=== PATIENT | male | born 1945 | race Two or more races ===

== ENCOUNTER 2016-05-13 07:46 | Emergency (ER) | payer MEDICARE ==
[2016-05-13] MEDS ORDERED: NS 0.9% 1000 ML* 1,000 ML IV ONE (08:26)
[2016-05-13 08:47] LABS: Hematocrit 35 % (42-52); Hemoglobin 11.5 g/dl (14.0-18.0); Mean Corpuscular HGB Conc 33 g/dl (31-36); Mean Corpuscular Hemoglobin 31 pg (27-31); Mean Corpuscular Volume 94 fL (80-94); Mean Platelet Volume 8 um3 (7.4-10.4); Red Blood Count 3.72 10^6/ul (4.0-5.4); Red Cell Distribution Width 14 % (10.5-15); White Blood Count 10.9 10^3/ul (3.5-10.8)
[2016-05-13 08:58] LABS: BUN/Creatinine Ratio 21.2 (8-20); Calcium 9.5 mg/dL (8.6-10.3); EGFR African American 69.4 (>60); EGFR Non-African American 53.9 (>60); Globulin 3.2 g/dL (2-4); Magnesium 1.8 mg/dL (1.9-2.7); Potassium 4.6 mmol/L (3.5-5.0); Total Bilirubin 0.5 mg/dL (0.2-1.0); Total Protein 7.2 g/dL (6.4-8.9)
[2016-05-13 09:00] LABS: Troponin I 0.01 ng/mL (<0.04)
[2016-05-13 09:08] LABS: TSH (Thyroid Stimulating Horm) 1.32 mcIU/mL (0.34-5.60)
[2016-05-13 10:29] LABS: Urine Bilirubin Negative (Negative); Urine Glucose Negative (Negative); Urine Nitrite Negative (Negative)
[2016-05-13] MEDS ORDERED: Acetaminop/Codeine 30 MG TAB* 1 TAB (300 MG/30 MG) PO ONE (12:38)
--- NOTE | 2016-05-13 15:02 | RAD ---
INDICATION: Cough COMPARISON: April 05, 2015 TECHNIQUE: PA and lateral dual-energy views were obtained. FINDINGS: Bones/Soft Tissues: There are no acute bony findings. There is a left-sided cardiac pacemaker Cardiomediastinal: The cardiomediastinal silhouette is normal. There are no current basilar congestive findings Lungs: There are no infiltrates. There is mild hyperinflation. Pleura: There are no pleural effusions. Other: None IMPRESSION: CARDIAC PACEMAKER. NO ACUTE DISEASE.
[2016-05-13 15:42] VITALS: BP 100/84
--- NOTE | 2016-05-13 17:41 | ED ---
Anjelica Ferrell Salem, scribed for Kartik Mortensen MD on 05/13/16 at 0825 . Syncope/Near Syncope - HPI Summary HPI Summary: Patient is a 70 y/o male who presents to the ED with syncope this morning. His reports he woke up this morning and was doing well. He then took a nap and the syncope occurred following the nap. Pt has a hx of dizziness, but he denies dizziness this morning. He reports syncope lasted approximately one minute and his reports pt was dazed afterwards. Pt saw PCP yesterday for fever and had a negative CXR. He is on blood pressure medication, although he did not take his medicine this morning. - History Of Current Complaint Chief Complaint: EDSyncope Time Seen by Provider: 05/13/16 08:09 Hx Obtained From: Patient Onset/Duration: Sudden Onset Context: Unwitnessed Activity At Onset: Other - Walking to bathroom. Aggravating Factor(s): Nothing Alleviating Factor(s): Nothing Associated Signs And Symptoms: Negative - Allergies/Home Medications Allergies/Adverse Reactions: Allergies Allergy/AdvReac Type Severity Reaction Status Date / Time No Known Allergies Allergy Verified 05/13/16 08:15 Home Medications: Home Medications Aspirin [Aspirin Adult Low Strengt 81 MG] 81 mg PO DAILY 05/13/16 [History Confirmed 05/13/16] Carvedilol TAB* [Coreg TAB*] 12.5 mg PO BID 05/13/16 [History Confirmed 05/13/16 ] Coenzyme Q10 (Ubidecarenone) [Co Q-10] 100 mg PO DAILY 05/13/16 [History Confirmed 05/13/16] Ferrous Sulfate TAB* 325 mg PO DAILY 05/13/16 [History Confirmed 05/13/16] Metformin HCl [Metformin HCl ER (Osmotic] 500 mg PO BID 05/13/16 [History Confirmed 05/13/16] Multiple Vitamin [Multi Vitamin] 1 tab PO DAILY 05/13/16 [History Confirmed 10/22] [place]-3 Fatty Acids [[place]-3 Fish Oil] 2 cap PO DAILY 05/13/16 [History Confirmed 05/13/16] Ramipril CAP* [Altace CAP*] 5 mg PO DAILY 05/13/16 [History Confirmed 05/13/16] Rosuvastatin Calcium 10 mg PO DAILY 05/13/16 [History Confirmed 05/13/16] Spironolactone TAB* [Aldactone TAB*] 25 mg PO DAILY 05/13/16 [History Confirmed 05/13/16] PMH/Surg Hx/FS Hx/Imm Hx Endocrine/Hematology History: Reports: Hx Diabetes Denies: Hx Systemic Lupus Erythematosus Cardiovascular History: Reports: Hx Hypertension, Other Cardiovascular Problems/ Disorders - [employer] Denies: Hx Congestive Heart Failure, Hx Pacemaker/ICD Respiratory History: Denies: Other Respiratory Problems/Disorders History: Denies: Hx Renal Disease Musculoskeletal History: Denies: Hx Rheumatoid Arthritis Sensory History: Reports: Hx Hearing Aid Neurological History: Comment Only: Other Neuro Impairments/Disorders - MENINGITIS AND STORKES IN 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 - Social History Alcohol Use: None Substance Use Type: Reports: None Hx Tobacco Use: No Smoking Status (MU): Never Smoked Tobacco Review of Systems Negative: Fever Positive: Syncope All Other Systems Reviewed And Are Negative: Yes Physical Exam Triage Information Reviewed: Yes Vital Signs On Initial Exam: Initial Vitals Temp Pulse Resp BP Pulse Ox 99.3 F 72 18 99/56 98 05/13/16 07:47 05/13/16 07:47 05/13/16 07:47 05/13/16 07:47 05/13/16 07:47 Vital Signs Reviewed: Yes Appearance: Positive: Well-Appearing, No Pain Distress Skin: Positive: Warm, Skin Color Reflects Adequate Perfusion, Dry Head/Face: Positive: Normal Head/Face Inspection Eyes: Positive: Normal Neck: Positive: Supple, Nontender Respiratory/Lung Sounds: Positive: Clear to Auscultation, Breath Sounds Present Cardiovascular: Positive: RRR Abdomen Description: Positive: Nontender, Soft Bowel Sounds: Positive: Present Musculoskeletal: Positive: Normal Neurological: Positive: Normal Psychiatric: Positive: Normal, Affect/Mood Appropriate - [place] Coma Scale Coma Scale Total: 15 Diagnostics - Vital Signs Vital Signs Temp Pulse Resp BP Pulse Ox 05/13/16 08:00 73 20 93/58 96 05/13/16 07:57 73 94/57 96 03/08/17 07:56 73 95 05/13/16 07:47 99.3 F 72 18 99/56 98 - Laboratory Lab Results: Lab Results 05/13/16 05/13/16 05/13/16 Range/Units 07:56 07:56 07:56 WBC 10.9 H (3.5-10.8) 10^3/ul RBC 3.72 L (4.0-5.4) 10^6/ul Hgb 11.5 L (14.0-18.0) g/dl Hct 35 L (42-52) % MCV 94 (80-94) fL MCH 31 (27-31) pg MCHC 33 (31-36) g/dl RDW 14 (10.5-15) % Plt Count 115 L (150-450) 10^3/ul MPV 8 (7.4-10.4) um3 Neut % (Auto) 69.2 (38-83) % Lymph % (Auto) 20.1 L (25-47) % [place] % (Auto) 10.0 H (1-9) % Eos % (Auto) 0.1 (0-6) % Baso % (Auto) 0.6 (0-2) % Absolute Neuts (auto) 7.6 (1.5-7.7) 10^3/ul Absolute Lymphs (auto) 2.2 (1.0-4.8) 10^3/ul Absolute Monos (auto) 1.1 H (0-0.8) 10^3/ul Absolute Eos (auto) 0 (0-0.6) 10^3/ul Absolute Basos (auto) 0.1 (0-0.2) 10^3/ul Absolute Nucleated RBC 0.01 10^3/ul Nucleated RBC % 0.1 Sodium 128 L (133-145) mmol/L Potassium 4.6 (3.5-5.0) mmol/L Chloride 100 L (101-111) mmol/L Carbon Dioxide 22 (22-32) mmol/L Anion Gap 6 (2-11) mmol/L BUN 28 H (6-24) mg/dL Creatinine 1.32 H (0.67-1.17) mg/dL Est GFR ( Amer) 69.4 (>60) Est GFR (Non-Af Amer) 53.9 (>60) BUN/Creatinine Ratio 21.2 H (8-20) Glucose 142 H (70-100) mg/dL Lactic Acid 1.1 (0.5-2.0) mmol/L Calcium 9.5 (8.6-10.3) mg/dL Magnesium 1.8 L (1.9-2.7) mg/dL Total Bilirubin 0.50 (0.2-1.0) mg/dL AST 36 (13-39) U/L ALT 51 (7-52) U/L Alkaline Phosphatase 29 L (34-104) U/L Troponin I 0.01 (<0.04) ng/mL Total Protein 7.2 (6.4-8.9) g/dL Albumin 4.0 (3.2-5.2) g/dL Globulin 3.2 (2-4) g/dL Albumin/Globulin Ratio 1.3 (1-3) TSH 1.32 (0.34-5.60) mcIU/mL Urine Color Urine Appearance Urine pH (5-9) Ur Specific [place] (1.010-1.030) Urine Protein (Negative) Urine Ketones (Negative) Urine Blood (Negative) Urine Nitrate (Negative) Urine Bilirubin (Negative) Urine Urobilinogen (Negative) Ur Leukocyte Esterase (Negative) Urine Glucose (Negative) 05/13/16 Range/Units 10:19 WBC (3.5-10.8) 10^3/ul RBC (4.0-5.4) 10^6/ul Hgb (14.0-18.0) g/dl Hct (42-52) % MCV (80-94) fL MCH (27-31) pg MCHC (31-36) g/dl RDW (10.5-15) % Plt Count (150-450) 10^3/ul MPV (7.4-10.4) um3 Neut % (Auto) (38-83) % Lymph % (Auto) (25-47) % [place] % (Auto) (1-9) % Eos % (Auto) (0-6) % Baso % (Auto) (0-2) % Absolute Neuts (auto) (1.5-7.7) 10^3/ul Absolute Lymphs (auto) (1.0-4.8) 10^3/ul Absolute Monos (auto) (0-0.8) 10^3/ul Absolute Eos (auto) (0-0.6) 10^3/ul Absolute Basos (auto) (0-0.2) 10^3/ul Absolute Nucleated RBC 10^3/ul Nucleated RBC % Sodium (133-145) mmol/L Potassium (3.5-5.0) mmol/L Chloride (101-111) mmol/L Carbon Dioxide (22-32) mmol/L Anion Gap (2-11) mmol/L BUN (6-24) mg/dL Creatinine (0.67-1.17) mg/dL Est GFR ( Amer) (>60) Est GFR (Non-Af Amer) (>60) BUN/Creatinine Ratio (8-20) Glucose (70-100) mg/dL Lactic Acid (0.5-2.0) mmol/L Calcium (8.6-10.3) mg/dL Magnesium (1.9-2.7) mg/dL Total Bilirubin (0.2-1.0) mg/dL AST (13-39) U/L ALT (7-52) U/L Alkaline Phosphatase (34-104) U/L Troponin I (<0.04) ng/mL Total Protein (6.4-8.9) g/dL Albumin (3.2-5.2) g/dL Globulin (2-4) g/dL Albumin/Globulin Ratio (1-3) TSH (0.34-5.60) mcIU/mL Urine Color Yellow Urine Appearance Clear Urine pH 5.0 (5-9) Ur Specific [place] 1.004 L (1.010-1.030) Urine Protein Negative (Negative) Urine Ketones Negative (Negative) Urine Blood Negative (Negative) Urine Nitrate Negative (Negative) Urine Bilirubin Negative (Negative) Urine Urobilinogen Negative (Negative) Ur Leukocyte Esterase Negative (Negative) Urine Glucose Negative (Negative) Result Diagrams: 05/13/16 07:56 05/13/16 07:56 Lab Statement: Any lab studies that have been ordered have been reviewed, and results considered in the medical decision making process. - Radiology CXR Radiology Interpretation Completed By: Radiologist - IMPRESSION: CARDIAC PACEMAKER. NO ACUTE DISEASE. - EKG 0742 EKG Interpretation: Ventricular paced. Atrial sensitive. Normal rate @ 73 bpm. Re-Evaluation - Re-Evaluation First Eval Re-Evaluation Time: 14:05 Comment: Discussed plan with pt. He is agreable. Course/Dx Course Of Treatment: Mr. Isaacs came in a bit hypotensive after having a sudden syncopal episode while walking to the bathroom to brush his teeth. He had no warning but has been sick for about a week and was in to see his PMD yesterday. He never really lost consciousness; his heard him fall and hurried over. He appeared dry and was rehydrated here while we arranged to have his ICD/Pacer interrogated. His heart was not the problem and I think he was just quite dehydrated from his recent viral infection. His BP improved with fluids and he felt better. - Diagnoses Provider Diagnoses: Severe dehydration, Viral syndrome - Physician Notifications Discussed Care Of Patient With: Dr. Fragoso (Hospitalist). Discharge - Discharge Plan Condition: Stable Disposition: HOME Prescriptions: Acetaminoph/Cod 120/12 mg LIQ* [Tylenol/Codeine 120/12 LIQ*] 5 ml PO Q4H PRN # 150 udc MDD 30 cc PRN Reason: Cough Patient Education Materials: Acetaminophen/Codeine (By mouth), Dehydration (ED) Referrals: Marylu Elliott MD [Primary Care Provider] - Additional Instructions: Follow up with PCP. The documentation as recorded by the Anjelica partida Salem accurately reflects the service I personally performed and the decisions made by me, Kartik Mortensen MD.
== END 2016-05-13 15:41 | disposition home or self-care (01) ==
LOC: ED 07:46
DX: B34.9 Viral infection, unspecified (principal); R55 Syncope and collapse; E86.0 Dehydration
CPT/HCPCS: 36415; 71020; 80053; 81003; 83605; 83735; 84443; 84484; 85025; 93005; 99284; A9270-GY

== ENCOUNTER → 2016-06-03 08:55 | Day surgery (SDC) | payer MEDICARE ==
[~2016-06-03 08:55] MED LIST: Acetaminophen TAB* 325 MG PO PRN; Buffered Lidocaine 1% SYRIN* 3 ML/SYR SYRINGE INTRADERM ONE; Cyclopentolate 1% OPTH.SOL* 2 ML BTL ONE; Flurbiprofen 0.03% OPTH.SOL* 2.5 ML BTL ONE; Lidocaine 1% MPF* 2 ML VIAL ONE; Lidocaine 2% EPI 1:200000 MPF* 20 ML VIAL ONE; Midazolam* 1 MG/ML 2 ML VIAL (2 MG) ONE; Neomycin/Polymy/Dex OPTH.SUSP* MAXITROL 0.1% 5 ML ONE; Phenylephrine 2.5% OPTH.SOL* 2 ML BTL ONE; Povidone Iodine 5% OPTH* 30 ML BTL ONE; Proparacaine 0.5% OPHTH.SOL* 15 ML BTL ONE; acetaZOLAMIDE TAB* 250 MG ONE; fentaNYL* 50 MCG/ML 2 ML VIAL (100 MCG VIAL) ONE
[2016-06-03 12:22] VITALS: BP 103/58
--- NOTE | 2016-06-03 23:28 | OP ---
DATE OF OPERATION: 06/03/16 - [facility] DATE OF : 49 SURGEON: Raul Leos M.D. PREOPERATIVE DIAGNOSIS: Cataract, right eye. POSTOPERATIVE DIAGNOSIS: Cataract, right eye. OPERATIVE PROCEDURE: Phacoemulsification, right eye, with IOL. DESCRIPTION OF PROCEDURE: The patient was brought to the operating room after being given 1/2% Alcaine with epinephrine drops in the preoperative area. The eye was prepped and draped in the usual sterile fashion. Sterile drape and eyelid speculum were placed. Again, topical 1/2% Alcaine with epinephrine was given. A paracentesis incision was made at the 9 o'clock position with the No.75 blade. Clear cornea incision 2.2 x 2.2-mm was created at the 12 o'clock position starting at the anterior limbus using the 2.2-mm keratome. The anterior chamber was irrigated with 0.4 mL of 1% non-preservative intracameral lidocaine and filled with DisCoVisc. A capsulorrhexis was completed using the cystotome and the Utrata forceps. Hydrodissection was performed with balanced salt solution. The lens nucleus was removed with the Phacoemulsification handpiece without incident. Cortex was removed with the irrigation-aspiration handpiece. The capsular bag was re-inflated using DisCoVisc and an [id number] implant was inserted with the shooter. The irrigation-aspiration handpiece was used to remove all residual DisCoVisc. The eye was refilled with balanced salt solution and the wound checked and found to be watertight. Topical Maxitrol drops were given. [id number]/[facility] #: [id number] [facility]ENTER[facility]iny[facility]
== END | disposition home or self-care (01) ==
LOC: OREAST 08:55
PROVIDERS: ATTEND Specialist
DX: H26.9 Unspecified cataract (principal); E11.9 Type 2 diabetes mellitus without complications; Z79.82 Long term (current) use of aspirin; I10 Essential (primary) hypertension
CPT/HCPCS: J2250; J3010

== ENCOUNTER → 2016-06-10 06:44 | Day surgery (SDC) | payer MEDICARE ==
[~2016-06-10 06:44] MED LIST changes: -fentaNYL* 50 MCG/ML 2 ML VIAL (100 MCG VIAL) ONE
[2016-06-10 09:12] VITALS: BP 111/67
--- NOTE | 2016-06-11 05:02 | OP ---
DATE OF OPERATION: 06/10/16 - [facility] DATE OF : 49 SURGEON: Raul Leos M.D. PREOPERATIVE DIAGNOSIS: Cataract left eye. POSTOPERATIVE DIAGNOSIS: Cataract left eye. OPERATIVE PROCEDURE: Phacoemulsification left eye with IOL. DESCRIPTION OF PROCEDURE: The patient was brought to the operating room after being given 1/2% Alcaine with epinephrine drops in the preoperative area. The eye was prepped and draped in the usual sterile fashion. Sterile drape and eyelid speculum were placed. Again, topical 1/2% Alcaine with epinephrine was given. A paracentesis incision was made at the 3 o'clock position with the No.75 blade. Clear cornea incision 2.2 x 2.2-mm was created at the 6 o'clock position starting at the anterior limbus using the 2.2-mm keratome. The anterior chamber was irrigated with 0.4 mL of 1% non-preservative intracameral lidocaine and filled with DisCoVisc. A capsulorrhexis was completed using the cystotome and the Utrata forceps. Hydrodissection was performed with balanced salt solution. The lens nucleus was removed with the Phacoemulsification handpiece without incident. Cortex was removed with the irrigation-aspiration handpiece. The capsular bag was re-inflated using DisCoVisc and an [id number] implant was inserted with the shooter. The irrigation-aspiration handpiece was used to remove all residual DisCoVisc. The eye was refilled with balanced salt solution and the wound checked and found to be watertight. Topical Maxitrol drops were given. [id number]/[facility] #: [id number] [facility]ENTER[facility]
== END | disposition home or self-care (01) ==
LOC: OREAST 06:44
PROVIDERS: ATTEND Specialist
DX: H25.12 Age-related nuclear cataract, left eye (principal); E11.8 Type 2 diabetes mellitus with unspecified complications; Z79.84 Long term (current) use of oral hypoglycemic drugs; I10 Essential (primary) hypertension; Z95.810 Presence of automatic (implantable) cardiac defibrillator; I44.7 Left bundle-branch block, unspecified; I50.22 Chronic systolic (congestive) heart failure; I42.9 Cardiomyopathy, unspecified
CPT/HCPCS: J2250; V2632